=== PATIENT | female | born 1945 | race Caucasian/White ===

== ENCOUNTER 2018-04-02 11:28 | Emergency (ER) | payer MEDICARE ==
[2018-04-02 11:47] VITALS: BP 151/91
--- NOTE | 2018-04-02 11:54 | UC ---
Abdominal Pain Female HPI - HPI Summary HPI Summary: Patient is complaining of diffuse abdominal pain since Sunday-6 days ago. She notes ii has been getting progressively worse. With that, she has had nausea but denies any vomiting or diarrhea. She denies history of fever. She notes that any kind of movement worsens her pain. Her drove her here and even a bump in the road caused her to have worsening in her pain. She states that she has a history of diverticulitis but that is usually pain in her left lower side and this is diffuse. She reports not having a BM for several days but did take Form of fiber and finally had a bowel movement yesterday but still has pain. - History of Current Complaint Chief Complaint: UCAbdominalPain Stated Complaint: BOWL COMP Time Seen by Provider: 04/02/18 11:47 Hx Obtained From: Patient Onset/Duration: Gradual Onset Timing: Constant Pain Intensity: 8 Aggravating Factor(s): Movement Associated Signs and Symptoms: Positive: Nausea Allergies/Adverse Reactions: Allergies Allergy/AdvReac Type Severity Reaction Status Date / Time amoxicillin [From Augmentin] Allergy Abdominal Verified 04/02/18 11:50 Pain clavulanic acid Allergy Abdominal Verified 04/02/18 11:50 [From Augmentin] Pain meperidine [From Demerol] Allergy Hallucinati Verified 04/02/18 11:49 ons propoxyphene [From Darvon] Allergy Abdominal Verified 04/02/18 11:49 Pain PMH/Surg Hx/FS Hx/Imm Hx Endocrine History: Diabetes Cardiovascular History: Hypertension GI/ History: Diverticulitis - Surgical History Surgical History: Yes Surgery Procedure, Year, and Place: appy, Left breast lumpectomy, 2 vein ligations right leg; left hand cyst, d and c; left shoulder 01/03/18 - Social History Occupation: Retired Lives: With Family Alcohol Use: None Substance Use Type: None Smoking Status (MU): Never Smoked Tobacco - Immunization History Vaccination Up to Date: Yes Review of Systems Constitutional: Negative Skin: Negative Eyes: Negative ENT: Negative Respiratory: Negative Cardiovascular: Negative Gastrointestinal: Abdominal Pain, Nausea Genitourinary: Negative Motor: Negative Neurovascular: Negative Musculoskeletal: Negative Neurological: Negative Psychological: Negative All Other Systems Reviewed And Are Negative: Yes Physical Exam Triage Information Reviewed: Yes Appearance: Well-Appearing Vital Signs: Initial Vital Signs Temp 99.1 F 04/02/18 11:37 Pulse 98 04/02/18 11:37 Resp 20 04/02/18 11:37 BP 151/91 04/02/18 11:37 Pulse Ox 96 04/02/18 11:37 Vital Signs Reviewed: Yes Eyes: Positive: Conjunctiva Clear ENT: Positive: Normal ENT inspection Neck: Positive: Supple, Nontender, No Lymphadenopathy Respiratory: Positive: Lungs clear, Normal breath sounds Cardiovascular: Positive: RRR, No Murmur Abdomen Description: Positive: Other: - Abdomen has hypoactive bowel sounds, soft, diffusely tender. No mass hepatosplenomegaly or CVA tenderness appreciated. Patient has subtle peritoneal signs. Musculoskeletal: Positive: ROM Intact Neurological: Positive: Alert Psychological: Positive: Age Appropriate Behavior Skin Exam: Normal Abd Pain Female Course/Dx - Course Course Of Treatment: Patient on day 6 of worsening diffuse abdominal pain with subtle peritoneal signs. Requires emergency room transfer for higher level of care. EMS offered patient declined is driving. Report given to Patti Farley NP at [facility]. Advised of abdominal pain with peritoneal signs, EMS declined, driving her. - Differential Dx/Diagnosis Provider Diagnoses: Abdominal pain Discharge - Sign-Out/Discharge Documenting (check all that apply): Discharge/Admit/Transfer - Discharge Plan Condition: Stable Disposition: TRANS HIGHER LVL OF CARE FAC Referrals: Shannan Corley NP [Primary Care Provider] - Additional Instructions: GO DIRECTLY TO THE [facility] FROM HERE DISCUSSED. DO NOT EAT OR DRINK - Billing Disposition and Condition Condition: STABLE Disposition: Trans Higher Lvl of Care Fac
== END 2018-04-02 11:59 | disposition short-term general hospital (02) ==
LOC: UCCORT 11:28
DX: R10.84 Generalized abdominal pain (principal); R11.0 Nausea; I10 Essential (primary) hypertension; E11.9 Type 2 diabetes mellitus without complications; Z88.0 Allergy status to penicillin; Z88.6 Allergy status to analgesic agent; Z88.5 Allergy status to narcotic agent
CPT/HCPCS: 99212; G0463

== ENCOUNTER 2018-05-25 21:07 | Emergency (ER) | payer MEDICARE ==
[2018-05-25 21:21] VITALS: BP 149/86
--- NOTE | 2018-05-25 21:24 | UC ---
Skin Complaint HPI - HPI Summary HPI Summary: insect bite on right forearm a few days ago---now has increased pain swelling redness and warmth--full ROM at elbow no swollen glands no fevrs, chills, fatigue - History of Current Complaint Chief Complaint: UCSkin Time Seen by Provider: 05/25/18 21:11 Stated Complaint: RT ARM INFECTION Hx Obtained From: Patient ?: No Onset/Duration: Sudden Onset, Lasting Days - 3, Still Present, Worse Since - daily Timing: Constant Location: Discrete - right proximal forearm Character: Pain, Redness Aggravating Factor(s): Nothing, Wind Alleviating Factor(s): Nothing, Unknown Associated Signs & Symptoms: Positive: Negative, Tenderness Related History: Insect Bite/Sting - Allergy/Home Medications Allergies/Adverse Reactions: Allergies Allergy/AdvReac Type Severity Reaction Status Date / Time amoxicillin [From Augmentin] Allergy Abdominal Verified 04/02/18 11:50 Pain clavulanic acid Allergy Abdominal Verified 04/02/18 11:50 [From Augmentin] Pain meperidine [From Demerol] Allergy Hallucinati Verified 04/02/18 11:49 ons propoxyphene [From Darvon] Allergy Abdominal Verified 04/02/18 11:49 Pain Home Medications: Home Medications Gabapentin [Neurontin] 100 mg PO DAILY 05/25/18 [History Confirmed 05/25/18] Insulin GLARGINE(*) [Lantus(*)] 50 units INJ BEDTIME 05/25/18 [History Confirmed 05/25/18] Lisinopril 10 mg PO DAILY 05/25/18 [History Confirmed 05/25/18] Review of Systems Constitutional: Negative Skin: Other - [id number] right proximal forearm after insect bite Eyes: Negative ENT: Negative Respiratory: Negative Cardiovascular: Negative Gastrointestinal: Negative Genitourinary: Negative Motor: Negative Neurovascular: Negative Musculoskeletal: Negative Neurological: Negative Psychological: Negative Is Patient Immunocompromised?: No All Other Systems Reviewed And Are Negative: Yes PMH/Surg Hx/FS Hx/Imm Hx Previously Healthy: No Endocrine History: Diabetes Cardiovascular History: Hypertension - Surgical History Surgical History: Yes Surgery Procedure, Year, and Place: appy, Left breast lumpectomy, 2 vein ligations right leg; left hand cyst, d and c; left shoulder 01/03/18 - Social History Occupation: Retired Lives: With Family Alcohol Use: None Substance Use Type: None Smoking Status (MU): Never Smoked Tobacco - Immunization History Vaccination Up to Date: Yes Physical Exam Triage Information Reviewed: Yes Appearance: Well-Appearing, No Pain Distress, Well-Nourished Vital Signs Reviewed: Yes Eye Exam: Normal Eyes: Positive: Conjunctiva Clear ENT Exam: Normal ENT: Positive: Normal ENT inspection, Hearing grossly normal. Negative: Tonsillar exudate, Trismus, Hoarse voice Dental Exam: Normal Neck exam: Normal Neck: Positive: Supple, Nontender Respiratory Exam: Normal Respiratory: Positive: Chest non-tender, No respiratory distress, No accessory muscle use Cardiovascular Exam: Normal Cardiovascular: Positive: RRR, Pulses Normal, Brisk Capillary Refill Musculoskeletal Exam: Normal Musculoskeletal: Positive: Strength Intact, ROM Intact, No Edema Neurological Exam: Normal Neurological: Positive: Alert Psychological Exam: Normal Skin Exam: Other Skin: Positive: Other - 7x5 cm area of redness warm right proximal forearm Course/Dx - Course Course Of Treatment: warm compress BActrim, Tylenol, follow with pcp to ED should symptoms worsen - Diagnoses Provider Diagnoses: callulitis right forearm, hypertension in poor control Discharge - Sign-Out/Discharge Documenting (check all that apply): Patient Departure All imaging exams completed and their final reports reviewed: No Studies - Discharge Plan Condition: Stable Disposition: HOME Prescriptions: Sulfamethox/Trimethoprim DS* [Bactrim DS 800/160 TAB*] 1 tab PO BID #13 tab Patient Education Materials: Cellulitis (ED), Hypertension (ED), Warm Compress or Soak (ED) Referrals: Shannan Corley NP [Primary Care Provider] - 3 Days Additional Instructions: Please go to emergency department if symptoms worsen , increase pain or redness , pain moving elbow, fevers, fatigue, and increase in blood sugars - Billing Disposition and Condition Condition: STABLE Disposition: Home - Attestation Statements Provider Attestation: Per institutional requirements, I have reviewed the chart, however, I was not consulted specifically or made aware of this patient by the midlevel provider. I did not personally evaluate, interact with , or disposition this patient.
[2018-05-25] MEDS ORDERED: Acetaminophen TAB* 325 MG PO ONE (21:25)
[2018-05-25] MEDS ORDERED: Sulfamethox/Trimethoprim DS 800/160* TAB PO ONE (21:25)
== END 2018-05-25 21:35 | disposition home or self-care (01) ==
LOC: UCCORT 21:07
DX: L03.113 Cellulitis of right upper limb (principal); I10 Essential (primary) hypertension; E11.9 Type 2 diabetes mellitus without complications; Z88.0 Allergy status to penicillin; Z88.8 Allergy status to other drugs, medicaments and biological substances; Z88.1 Allergy status to other antibiotic agents; Z79.4 Long term (current) use of insulin; Z79.899 Other long term (current) drug therapy
CPT/HCPCS: 99212; A9270-GY; G0463